=== PATIENT | male | born 1985 | race Caucasian/White ===

== ENCOUNTER 2018-04-25 06:22 | Emergency (ER) | payer OTHER ==
[~2018-04-25] VITALS: Ht 177.8 cm; Wt 118.2 kg
[2018-04-25 06:28] VITALS: BP 99/60
[2018-04-25] MEDS ORDERED: BASA100I SC (06:37)
[2018-04-25] MEDS ORDERED: GABA-843 (06:37)
[2018-04-25] MEDS ORDERED: LEXA1TAB PO (06:37)
[2018-04-25] MEDS ORDERED: ADME100I2 SC (06:37)
[2018-04-25] MEDS ORDERED: FLUORESCEIN OPHTH 1 MG STRIP OS ONE (06:45)
[2018-04-25] MEDS ORDERED: TETRACAINE 0.5% OPHTH SOLN 4ML OS ONE (06:45)
[2018-04-25] MEDS ORDERED: ERYTOIN8 OS (07:19)
== END 2018-04-25 07:44 | disposition home or self-care (01) ==
LOC: M ED 06:22
DX: S40.812A Abrasion of left upper arm, initial encounter (principal); S80.811A Abrasion, right lower leg, initial encounter; S80.812A Abrasion, left lower leg, initial encounter; T15.02XA Foreign body in cornea, left eye, initial encounter; V44.5XXA Car driver injured in collision with heavy transport vehicle or bus in traffic accident, initial encounter; Y92.9 Unspecified place or not applicable; Y93.9 Activity, unspecified; E11.9 Type 2 diabetes mellitus without complications; M54.9 Dorsalgia, unspecified; F32.9 Major depressive disorder, single episode, unspecified; Z72.0 Tobacco use; Z79.4 Long term (current) use of insulin; Z79.899 Other long term (current) drug therapy